=== PATIENT | female | born 1960 | race Hispanic/Latino ===

== ENCOUNTER 2017-03-24 19:08 | Emergency (ER) | payer BC ==
[~2017-03-24] VITALS: Ht 152.4 cm; Wt 71.8 kg
[2017-03-24] MEDS ORDERED: LIDOCAINE 2% MDV 20 ML VIAL SC ONE (20:30)
--- NOTE | 2017-03-24 20:30 | REP ---
Clinical: Trauma. Technique: AP, lateral, bilateral oblique views of the left wrist. Findings: Comminuted Colles' fracture of the distal radial metaphysis is appreciated along with ulnar styloid fracture. Overlying soft tissue swelling noted. No subcutaneous emphysema. Carpal bones appear intact. Impression: Closed comminuted Colles' fracture of the distal radius and ulnar styloid fracture. Signed by Yusuf Morfin MD 03/24/2017 08:22 P
[2017-03-24] MEDS ORDERED: HYDROmorphone HCL 1 MG/ML SYRINGE (J1170) IM ONE ×2 (20:45→23:00)
[2017-03-24] MEDS ORDERED: DILA2TAB6 PO (23:31)
[2017-03-24 23:46] VITALS: BP 110/59
--- NOTE | 2017-03-25 07:48 | REP ---
Clinical: Status post reduction. Technique: AP, lateral, bilateral oblique views of the left wrist. Findings: Comminuted Colles' fracture of the distal radius with posterior angulated fracture fragments best identified on lateral radiograph. Ulnar styloid fracture noted. Impression: Continued evidence for comminuted Colles' fracture of the distal radius with angulated displaced posterior fracture fragments and ulnar styloid fracture. Signed by Yusuf Morfin MD 03/25/2017 07:40 A
--- NOTE | 2017-03-25 07:49 | REP ---
Clinical: Status post reduction. Technique: AP, lateral, bilateral oblique views of the left wrist. Findings: Comminuted Colles' fracture of the distal radius with posterior displaced angulated fracture fragments best identified on lateral radiograph. Ulnar styloid fracture noted. Impression: Continued evidence for comminuted Colles' fracture of the distal radius with angulated displaced posterior fracture fragments and ulnar styloid fracture. Signed by Yusuf Morfin MD 03/25/2017 07:41 A
== END 2017-03-24 23:47 | disposition home or self-care (01) ==
LOC: M ED 19:08
DX: S52.532A Colles' fracture of left radius, initial encounter for closed fracture (principal); S52.615A Nondisplaced fracture of left ulna styloid process, initial encounter for closed fracture; W01.198A Fall on same level from slipping, tripping and stumbling with subsequent striking against other object, initial encounter; Y92.099 Unspecified place in other non-institutional residence as the place of occurrence of the external cause; Y93.01 Activity, walking, marching and hiking; Y99.9 Unspecified external cause status